=== PATIENT | female | born 1965 | race Caucasian/White ===

== ENCOUNTER 2016-08-31 15:49 | Emergency (ER) | payer SELFPAY | END 2016-09-01 03:06 | disposition left against medical advice (07) | LOC: ED 15:49 | DX: M79.671 Pain in right foot (principal); Z53.21 Procedure and treatment not carried out due to patient leaving prior to being seen by health care provider ==

== ENCOUNTER 2018-07-09 13:13 | Emergency (ER) | payer SELFPAY | END 2018-07-09 13:20 | disposition left against medical advice (07) | LOC: ED 13:13 ==